=== PATIENT | male | born 1970 | race Caucasian/White ===

== ENCOUNTER 2025-07-19 09:20 | Emergency (ER) | payer BC, SELFPAY ==
[2025-07-19 09:24] VITALS: BP 130/90
[2025-07-19 10:31] LABS: Hematocrit 45.7 % (39.0-52.0); Hemoglobin 15.8 g/dL (13.0-18.0); Mean Corp Hgb Conc. 34.6 g/dL (33.0-37.0); Mean Corpuscular Volume 83.5 fL (80.0-94.0); Nucleated Red Blood Cells % 0 % (-); Platelet Count 254 10^3/uL (130-400); Red Cell Dist. Width 12.7 % (11.5-14.5)
[2025-07-19 10:44] LABS: ALT (SGPT) 20 U/L (0-50); AST (SGOT) 19 U/L (17-59); Albumin 4.3 g/dl (3.5-5.0); Alkaline Phosphatase 57 U/L (38-126); Blood Urea Nitrogen 15 mg/dl (9-20); Calcium 9.1 mg/dl (8.4-10.2); Carbon Dioxide 23 mmol/L (22-30); Chloride 104 mmol/L (98-107); Glucose 220 mg/dl (70-99); Potassium 4.8 mmol/L (3.5-5.1); Sodium 137 mmol/L (135-145); Total Protein 7.6 g/dl (6.3-8.2); eGFR > 60.00
[2025-07-19 10:47] LABS: D-Dimer 0.33 ug/mlFEU (0.00-0.50)
[2025-07-19 10:54] LABS: COVID-19 Antigen Negative (Negative)
[2025-07-19 11:15] LABS: Troponin I < 0.012 ng/ml
--- NOTE | 2025-07-19 13:19 | ED.GENMED ---
History of Present Illness
<Kinga Almendarez PA-C - Last Filed: 07/20/25 12:00>
General
Chief Complaint: Chest Pain
Source: patient
Exam Limitations: none
Time Seen by Provider: 07/19/25 09:59
Nursing documentation reviewed up to this point in time: agreed with
History of Present Illness
History of Present Illness:
Patient is a 55-year-old male with history diabetes who presents to the emergency department for evaluation of shortness of breath. Patient states when he woke up this morning he felt like he was having a hard time taking a deep breath. He noticed
the symptoms initially while he was lying in bed. There was no clear exertional or positional correlation. When he arrived at work that, he developed a pressure type pain in his left upper chest prompting visit to the emergency department. He
denies any radiation into his back or jaw. Patient denies any exertional nature to chest pain. No associated fever, chills, productive cough. No pain or swelling in lower extremities. He denies any nausea or diaphoresis.
Patient denies any recent travel or recent surgeries. No personal or family history of blood clots or clotting disorders.
Review of Systems
<Kinga Almendarez PA-C - Last Filed: 07/20/25 12:00>
Review of Systems
Allergies reviewed?: Yes
All Other Systems: ROS reviewed and negative except as documented in HPI and ROS
Phy Exam
<Kinga Almendarez PA-C - Last Filed: 07/20/25 12:00>
Physical Exam
Physical Exam:
Vitals: Mildly hypertensive and tachypneic. Afebrile. Not hypoxic.
General: Patient is well appearing, no acute distress
Skin: Warm and dry, no rashes or lesions
Head: Normocephalic, atraumatic
Eyes: Sclera nonicteric. EOMs intact. No nystagmus.
Throat: Protecting airway
Neck: Normal ROM, no cervical spine tenderness, no meningismus
Cardiac: Regular rate and rhythm, no murmurs. No reproducible chest wall tenderness.
Pulm: Mildly increased work of breathing. Lungs clear bilaterally.
Abdomen: Abdomen soft and nontender.
Extremities: No evidence of cyanosis or edema. 2+ palpable DP pulses bilaterally.
Neuro: AAOx3. Grossly tact.
Psychiatric: Normal affect.
Scores
<Kinga Almendarez PA-C - Last Filed: 07/20/25 12:00>
Heart Score for Chest Pain Patients
STEMI patient?: Not applicable
PE Wells Score
Pulmonary Embolism Risk Score: 6
Probability of PE: Pt is moderate risk
<Bartolo Galloway MD - Last Filed: 07/19/25 13:37>
PE Wells Score
Symptoms of DVT: No
No alternative diagnosis better explains the illness: Yes
Tachycardia with pulse > 100: No
Immobilization (>=3 days) or surgery within previous 4 weeks: No
Prior history of DVT or pulmonary embolism: No
Presence of hemoptysis: No
Presence of malignancy: No
Pulmonary Embolism Risk Score: 6
Probability of PE: Pt is moderate risk
Course
<Kinga Almendarez PA-C - Last Filed: 07/20/25 12:00>
Orders/Labs/Results
Orders:
Orders
07/19/25 09:20
Electrocardiogram (*1) Urgent
Reason for Study: Chest Pain
EKG- Treatment ONCE
07/19/25 10:08
CR Chest - 2 Views Urgent
Comment:
Reason For Exam: SOB
07/19/25 10:11
COVID-19 Antigen Urgent
Source: Nasal Swab
Complete Blood Count/With Diff Urgent
Comprehensive Metabolic Panel Urgent
D-Dimer Urgent
NT-proBNP Urgent
Troponin I Urgent
Influenza A+B Rapid Molecular Urgent
[place] Source: Nasal Swab
Specimen Description:
07/19/25 13:10
Troponin I Urgent
07/19/25 13:15
Electrocardiogram (*1) Urgent
Reason for Study: Shortness of Breath
EKG- Treatment ONCE
07/19/25 13:33
CT Chest PE Study Urgent
Comment:
Reason For Exam: sob, chest pain
Abnormal Lab Results
07/19/25
10:11
Glucose 220 H mg/dl
(70-99)
07/19/25 10:11
07/19/25 10:11
Vital Signs
Initial and Last Documented VS:
Initial Vital Signs
Temp Pulse Resp BP Pulse Ox
97.8 F 94 18 130/90 93
07/19/25 09:24 07/19/25 09:24 07/19/25 09:24 07/19/25 09:24 07/19/25 09:24
Last Documented Vital Signs
Temp Pulse Resp BP Pulse Ox
97.8 F 85 16 139/83 91
07/19/25 09:24 07/19/25 14:30 07/19/25 14:30 07/19/25 14:23 07/19/25 14:30
<Bartolo Galloway MD - Last Filed: 07/19/25 13:37>
Orders/Labs/Results
Orders:
Orders
07/19/25 09:20
Electrocardiogram (*1) Urgent
Reason for Study: Chest Pain
EKG- Treatment ONCE
07/19/25 10:08
CR Chest - 2 Views Urgent
Comment:
Reason For Exam: SOB
07/19/25 10:11
COVID-19 Antigen Urgent
Source: Nasal Swab
Complete Blood Count/With Diff Urgent
Comprehensive Metabolic Panel Urgent
D-Dimer Urgent
NT-proBNP Urgent
Troponin I Urgent
Influenza A+B Rapid Molecular Urgent
[place] Source: Nasal Swab
Specimen Description:
07/19/25 13:10
Troponin I Urgent
07/19/25 13:15
Electrocardiogram (*1) Urgent
Reason for Study: Shortness of Breath
EKG- Treatment ONCE
07/19/25 13:33
CT Chest PE Study Urgent
Comment:
Reason For Exam: sob, chest pain
Abnormal Lab Results
07/19/25
10:11
Glucose 220 H mg/dl
(70-99)
07/19/25 10:11
07/19/25 10:11
Vital Signs
Initial and Last Documented VS:
Initial Vital Signs
Temp Pulse Resp BP Pulse Ox
97.8 F 94 18 130/90 93
07/19/25 09:24 07/19/25 09:24 07/19/25 09:24 07/19/25 09:24 07/19/25 09:24
Last Documented Vital Signs
Temp Pulse Resp BP Pulse Ox
97.8 F 85 16 139/83 91
07/19/25 09:24 07/19/25 14:30 07/19/25 14:30 07/19/25 14:23 07/19/25 14:30
<Kinga Almendarez PA-C - Last Filed: 07/20/25 12:00>
MDM/Problems Addressed
Differential Diagnosis Includes:
Not limited to: pleural effusion, pneumothorax, pneumonia, pulmonary embolism, acute coronary syndrome, CHF, etc
MDM/Problems Addressed:
55-year-old male with a history of diabetes presented with chest pain and shortness of breath that began this morning while lying in bed. Chest pain is non-exertional and non-pleuritic. No associated infectious symptoms, tearing back pain, or prior
history of CAD.
On arrival, the patient was mildly tachypneic with borderline low-normal oxygen saturation on room air. Cardiopulmonary exam was otherwise unremarkable.
Initial workup included EKG, serial troponins, basic labs, D-dimer, pro-BNP, and chest X-ray�all without acute findings. EKGs showed no ischemic changes; troponins were negative �2. D-dimer was negative. However given mild tachypnea and borderline
low pulse ox without identifiable cause, CTA chest was performed to evaluate for PE.
CTA chest was negative for pulmonary embolism but did note mild cardiomegaly. No other acute pathology identified. Symptoms improved during ED stay. Vitals remained stable, and oxygenation remained adequate on room air.
Given overall improvement, absence of acute cardiopulmonary pathology, and stable clinical status, the patient is safe for discharge. Recommended outpatient cardiology f/u - placed on chest pain hotline. Discharge instructions and return precautions
reviewed and understood.
Chronic conditions affecting care:
DM
Acute Exacerbation and/or Progression of Chronic Illness:
Acute hyperglycemia
<Kinga Almendarez PA-C - Last Filed: 07/20/25 12:00>
*Radiology
Radiology exam reviewed: radiology read reviewed
*Pulse Oximetry
SaO2: 91
Oxygen Mode of Delivery: Room air
Patient hypoxic: no
*EKG
Interpreted by ED Provider?: Yes
EKG Intrepretation Date: 07/19/25
Interpretation: abnormal
Comparison EKG: changes noted
Heart Rate: 81
Rate: normal
Rhythm: sinus
[place]: normal axis
Interval: normal interval
QRS Pattern: normal QRS
Ischemia: non-specific ST changes
*Form Setter Interpretation
Rate: normal
Interpretation: normal
Heart Rate: 92
Rhythm: sinus
*Critical Care Note
Total Time (30-74mins, 75-104mins- exclusive of procedures): Not Applicable
ED Attending Note
<Kinga Almendarez PA-C - Last Filed: 07/20/25 12:00>
-
Portions of this chart may have been created with voice recognition software.� Occasional wrong word or��sound alike� substitutions may have occurred due to the inherent limitations of voice recognition software.
<Bartolo Galloway MD - Last Filed: 07/19/25 13:37>
ED Attending Note
Patient seen and examined by attending physician: Yes
ED Attending Note:
I have seen and evaluated the patient with a [id number] encounter. I have spoken to the advance practicer provider and involved in the medical history, the physical exam, medical decision making.
Evaluation and management service: agree unless noted differently below.
Results interpretation: agree unless noted differently below.
Focused HPI: 55-year-old male with history of obesity, ZACH (noncompliant with CPAP), diabetes who presents to the emergency department for evaluation of shortness of breath. Patient reports symptoms started today when he woke up. He says he tried
to drive to work open his symptoms passed but they were persistent over the next few hours which prompted him to come to the ER for assessment. Thankfully here in the ER his symptoms have improved although they have not completely resolved. He has
had some mild associated left-sided chest pain. Denies any recent cough, fevers, chills. Denies swelling or pain in the legs. He denies having had similar symptoms in the past.
Physical exam: Awake and alert nondistressed. Vital signs were significant for mild tachypnea, low normal pulse ox 91% during my assessment. Heart rate in the 90s. He has no cardiac rubs gallops or murmurs. Lungs sound clear to auscultation
bilaterally. No appreciable edema. Extremities are warm and well-perfused.
Differential diagnosis: Pneumonia, pneumothorax, PE, ACS, dysrhythmia, anemia, electrolyte abnormality, CHF, anxiety attack
Medical Decision Makin-year-old male presents for evaluation of shortness of breath�symptoms improving but not resolved. Started when he woke up this morning. Vitals were significant for mild tachypnea and low normal pulse ox. Physical exam
is as above. He had initial workup including a CBC and a CMP which showed no clinically significant abnormalities�random glucose 220 in the setting of known diabetes. His initial troponin is undetectable�will trend this number. His proBNP is
normal. COVID and flu swabs are negative. Chest x-ray no acute disease. He did have a screening D-dimer sent that was negative but with vitals and abnormalities we will proceed with CT chest to rule out PE and this moderate risk patient by Wells
score. Reassess at the above�if emergent workup negative would likely benefit from cardiology referral.
Discharge Plan
Departure
Patient Disposition: Home (Routine Discharge)
Date of Disposition: 07/19/25
Time of Disposition: 15:04
Patient with high blood pressure during this ER visit?: Yes
Discharge Problem:
Shortness of breath
Instructions: Shortness of breath in adults - ED (DC), Chest Pain DCA Follow Up, BLOOD PRESSURE
Prescriptions:
No Action
allopurinol 100 mg Tablet
100 mg PO DAILY
Mounjaro 7.5 mg/0.5 mL Pen Injector
7.5 mg SC GALVAN
metformin 500 mg Tablet Extended Release 24 Hr
500 mg PO BID
Referrals:
Gabriele Turner MD [Active, Cardiology] - Next open appointment
UNKNOWN - PT DOES,NOT KNOW [Family Provider]
Activity Restrictions/Additional Instructions:
RETURN TO THE EMERGENCY DEPARTMENT WITH ANY CHEST PAIN, SHORTNESS OF BREATH/DIFFICULTY BREATHING, SEVERE BACK PAIN, SWELLING OR PAIN OF LOWER EXTREMITIES, WORSENING CURRENT SYMPTOMS, OR ANY OTHER CONCERNS
- As discussed�your lab work showed no acute abnormalities. Your CT scan did show a mildly enlarged heart.
- It is very important you follow-up with cardiology outpatient for further evaluation/management. You may require an echocardiogram.
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
Monitor your symptoms closely and return to the emergency department with any acute worsening/new symptoms or any other concerns
Interventions
Interventions:
*Risk Screen - Suicide Last Done: 07/19/25 09:24
*General Assessment Last Done: 07/19/25 09:24
*Neglect/Abuse Screening Last Done: 07/19/25 09:24
*ED- Fall Risk Assessment Last Done: 07/19/25 10:59
*ED COVID-19 Vaccine History Last Done: 07/19/25 11:00
*ED Influenza Vaccine History Last Done: 07/19/25 11:00
*Nursing Disposition Last Done: 07/19/25 15:13
ED- Cardiac Assessment Last Done: 07/19/25 10:08
Discharge Date and Time
Discharge Date/Time: 07/19/25 15:14
Print Language: MARSHALLESE
[2025-07-19 14:02] LABS: Troponin I < 0.012 ng/ml
[2025-07-19 14:23] VITALS: BP 139/83
[2025-07-19 14:25] VITALS: BMI 34.2
== END 2025-07-19 15:14 | disposition home or self-care (01) ==
LOC: EMR 09:20
PROVIDERS: Physician Assistant; EMERGENCY PHYSICIAN Emergency Medicine
DX: R06.02 Shortness of breath (principal); R07.89 Other chest pain; I51.7 Cardiomegaly; E11.9 Type 2 diabetes mellitus without complications; G47.33 Obstructive sleep apnea (adult) (pediatric); Z11.52 Encounter for screening for COVID-19
CPT/HCPCS: 99285; 71046; 71275; 80053; 83880; 84484; 85025; 85379; 87502; 87811; 93005; Q9967